=== PATIENT | male | born 1970 | race Caucasian/White ===

== ENCOUNTER 2022-11-16 20:31 | Inpatient (IN) | payer OTHER, SELFPAY ==
[2022-11-16 20:45] VITALS: BP 143/94; PULSE 68; RESP 18; TEMP 36.5; O2SAT 97
--- NOTE | 2022-11-17 01:28 | PC.ADMIT ---
Ghulam Zhao is a 52 year old male admitted to M3 for from [facility] for suicidal ideation following an intentional overdose on heroin. He signed a CV upon arrival to the unit. Ghulam states he is feeling overwhelmed r/t ongoing substance abuse, homelessness and lack of a good support system. He states that he is a client of the [facility] suboxone clinic but has not kept his appointments for the past three weeks. He endorses ongoing overwhelming suicidal ideation and is ambivalent regarding surviving his attempted overdose. He states he has lost approximately 30lbs recently r/t lack of funds, lack of housing, safety concerns, depression, and substance abuse. His appearance is unkempt however, he is homeless and has no access to a shower or laundry facilities. He has poor eye contact and was slightly irritable with the admission stating that he just wanted to go to bed. He did not compete the safety tool prior to going to bed. He is alert and oriented X's 3.
[2022-11-17] MEDS: cloNIDine HCL 0.1 MG TABLET PO ×2 (03:32→21:10)
[2022-11-17] MEDS: hydrOXYzine HCL 25 MG TABLET PO (03:32)
[2022-11-17 03:40] VITALS: BP 135/93; PULSE 61; RESP 18; TEMP 36.8; O2SAT 96
--- NOTE | 2022-11-17 03:55 | PC.NURSE ---
Ghulam c/o mild withdrawal s/s given clonidine and vistaril with pending effects
[2022-11-17 07:07] LABS: MANUAL DIFF FLAG NO
[2022-11-17 07:15] LABS: Basophils Percent Auto 0.5 % (0-2); Hematocrit 37.5 % (42.0-52.0); Hemoglobin 12.8 g/dl (14.0-18.0); Imm Gran Abs Auto 0.01 X10*3/uL (0.00-0.03); Imm Gran Pct Auto 0.2 % (0.0-0.4); Lymphocytes Absolute Auto 1.3 X10*3/uL (1.2-4.9); Lymphocytes Percent Auto 31.6 % (20-40); Mean Corpuscular HGB Conc 34.1 g/dl (31.0-36.0); Mean Corpuscular Hemoglobin 26.1 pg (27.0-33.0); Mean Corpuscular Volume 76.5 fL (80.0-98.0); Mean Platelet Volume 11.5 fL (9.4-12.4); Monocytes Absolute Auto 0.2 X10*3/uL (0.1-1.2); Monocytes Percent Auto 4.8 % (2-11); Neutrophils Absolute Auto 2.6 x10*3/uL (2.0-8.3); Neutrophils Percent Auto 61.9 % (45-73); Red Cell Distribution Width 16.6 % (11.0-16.0); White Blood Count 4.2 X10*3/uL (4.8-10.8)
[2022-11-17 07:26] LABS: Alanine Aminotransferase 20 U/L (0-40); Alkaline Phosphatase 88 U/L (39-117); Anion Gap 13 (12-20); Aspartate Amino Transferase 13 U/L (5-37); Bilirubin Total 0.9 mg/dL (0.0-1.0); Blood Urea Nitrogen 14 mg/dL (9-16); Calcium 8.3 mg/dL (8.4-10.2); Carbon Dioxide 23 mmol/L (22-29); Chloride 106 mmol/L (96-108); Cholesterol 113 mg/dL; Estimated Glomerular Filt Rate > 60; Glucose Fasting 116 mg/dL (60-99); HDL Cholesterol 38 mg/dL; LDL Cholesterol Calculated 62 mg/dl; Potassium 3.5 mmol/L (3.3-5.1); Sodium 138 mmol/L (135-145); Triglycerides 67 mg/dL
[2022-11-17 07:35] LABS: Platelet Count 76 X10*3/uL (160-400)
[2022-11-17 11:00] VITALS: BP 137/93; PULSE 67; RESP 16; TEMP 36.6; O2SAT 95
--- NOTE | 2022-11-17 11:07 | HO.PSYADMNOT ---
HPI Date of Service: 11/17/22 Chief Complaint: Unspecified Depressive D/o Sources of Information: patient interviewed, chart reviewed and crisis/core team assessment reviewed HPI Subjective Notes: Barber Warning (given and shows understanding) and Conditional Voluntary Narrative: Mr. Simmons is a 52 year-old male with hx of MDD, opioid use disorder who was found unresponsive on the streets- pt was given narcan with good result and transported to [facility]. In the ED his utox was negative for opioids, pt reports using fentanyl which was not tested for. He reports OD was a suicide attempt, not accidental. On the unit, pt reports he has been feeling depressed for about 3 weeks. Pt reports feeling lonely. He reports having multiple stressors including lack of housing and limited social supports. He reports he has been using opioids for more than 10 years. He states he has been for some years on suboxone. He states he has been using about 5 bags of heroin/fentanyl daily. He states day of OD it was on fentanyl and was with intent to end his life. He denies suicidal ideation at this point and states he is interested in resuming suboxone as well as being referred to residential substance use treatment. He denies VH/AH. Past Psychiatric History: Inpatient: 2 in the past unclear details OP: denies current providers Past trials: zoloft, seroquel, trazodone Hx of suicide attempt: 2 years ago OD on heroin. Medical Evaluation Reviewed: Yes [facility] Medical History History of hepatitis C Major depressive disorder Opioid dependence Polysubstance abuse Family History: unknown Social History: Pt currently homeless. He reports not working at the time. Substance History: Opioid use for more than 10 years, pt reports being on suboxone for some years, reports it is helpful to decrease opioid use. He reports he has been on methadone but prefers suboxone. He reports using 5 bags daily. Pt denies cocaine use/alcohol use. Trauma History: not discussed Diagnostics Vital Signs (24Hr): Vital Signs - 24 hr 11/16/22 20:45 11/17/22 03:40 Temperature 97.7 F 98.2 F Pulse Rate 68 61 Respiratory Rate 18 18 Blood Pressure 143/94 H 135/93 H Pulse Oximetry 97 96 Oxygen Delivery Method Room Air Room Air Labs 11/17/22 06:50 11/17/22 06:50 Labs: Laboratory Results - last 48 hr 11/17/22 11/17/22 06:50 06:50 WBC 4.2 L RBC 4.90 Hgb 12.8 L Hct 37.5 L MCV 76.5 L MCH 26.1 L MCHC 34.1 RDW 16.6 H Plt Count 76 L MPV 11.5 Immature Gran % (Auto) 0.2 Neut % (Auto) 61.9 Lymph % (Auto) 31.6 [place] % (Auto) 4.8 Eos % (Auto) 1.0 Baso % (Auto) 0.5 Lymph # (Auto) 1.3 [place] # (Auto) 0.2 Eos # (Auto) 0.0 Baso # (Auto) 0.0 Abs Immat Gran (auto) 0.01 Absolute Neuts (auto) 2.6 Absolute Nucleated RBC 0.000 Nucleated RBC % (auto) 0.0 Sodium 138 Potassium 3.5 Chloride 106 Carbon Dioxide 23 Anion Gap 13 BUN 14 Creatinine 0.82 Estim Creat Clear Calc TNP Estimated GFR > 60 Fasting Glucose 116 H Calcium 8.3 L Total Bilirubin 0.9 AST 13 ALT 20 Alkaline Phosphatase 88 Total Protein 6.0 L Albumin 3.0 L Triglycerides 67 Cholesterol 113 LDL Cholesterol, Calc 62 HDL Cholesterol 38 Meds/Allergies Allergies Allergies Allergy/AdvReac Type Severity Reaction Status Date / Time No Known Allergies Allergy Verified 11/16/22 20:45 Mental Status Exam Mental Status Exam Narrative: Appearance: wearing hospital gown, fair hygiene, in bed. Behavior: cooperative Speech: clear, normal rate/rhythm/volume, spontaneous Psychomotor: no agitation or retardation noted TP: linear TC: no signs of psychosis, feeling hopeless, wants tx. Mood: not well withdrawal symptoms Affect: congruent, physical discomfort s/s to opioid withdrawal symptoms. Si: denies HI: denies VH/AH: denies Delusions: none Insight/judgment: fair x 2. Memory/cog: alert, oriented x 3. grossly intact to conversational testing. Assessment & Plan Assessment & Plan (1) Major depressive disorder: Status: Acute Code(s): F32.9 - Major depressive disorder, single episode, unspecified (2) Opioid use disorder, severe, on maintenance therapy: Status: Acute Code(s): F11.20 - Opioid dependence, uncomplicated Plan Mr. Simmons is a 52 year-old male with hx of MDD, opioid use disorder who was found unresponsive on the streets- he was narcaned with good effect. Pt reported this was a suicide attempt on fentanyl. Pt reports increase depression in past several weeks. He endorses feeling hopeless, helpless in setting of multiple stressors. Pt reports he has been on sertraline in the past which he would like to restart. He wants to continue suboxone. Last dose per MAss Pat was 16mg/4mg SL daily. We discussed risks, benefits and alternative treatment options. PLAN 1. Admit to M3, CV, 15 minutes checks for safety 2. Comfort meds for opioid withdrawal- clonidine, flexeril, loperamide. Will start suboxone 8mg/2mg SL BID today. Start sertraline 50mg po daily tomorrow. 3. Aftercare planning. Patient educated on: diagnosis, medication risk/benefits and substance abuse Reason for continued inpatient stay Substantial Risk for: harm to self Statement Statement: I have reviewed the history and physical and performed a pertinent examination on my patient. No changes have occurred unless specified. If the History and Physical was not performed prior to admission, the Hospitalist's service will be consulted for completing the admission physical. Time Spent With Patient Time: Total time managing care of this patient today ____ minutes.
[2022-11-17] MEDS: Buprenorphine/Naloxone 8/2 mg FILM 1 FILM SUBLINGUAL ×2 (11:12→21:10)
--- NOTE | 2022-11-17 11:38 | P.CONHOSP_ITS ---
History of Present Illness Data of Consult Service Date: 11/17/22 Requesting physician: Nicole Galeana Primary Care Provider: Unknown Physician HPI Reason for consult: medical H&P 52-year-old male with history of polysubstance abuse including heroin/fentanyl and cocaine, history of hepatitis C treated at [facility] per patient, and major depressive disorder admitted to Psychiatry with consult placed to hospitalist service for medical H and P. He reports active withdrawal symptoms including diarrhea, agitation, back pain, sweats. He has been resumed on Suboxone. He denies any other substance use including alcohol and denies any cigarette smoking. While at [facility] ED, found to have mild microcytic anemia with H/H 11.4/33.8, MCV 79.4, mild hypokalemia with K 3.4. Hypertensive 160/89 actively withdrawing. Review of Systems Review of Systems: General: +sweats. No fevers, malaise, unintentional weight loss HEENT: No blurred vision, diplopia. No sore throat, nasal congestion, rhinor jesse, sinus pain, ear pain Cardiovascular: No chest pain, palpitations, or leg edema Respiratory: No shortness of breath, wheezing, cough GI: +diarrhea. No abdominal pain, nausea, vomiting, constipation, melena, hematochezia : No dysuria, hematuria, increased urinary frequency, decreased urinary output MSK: No myalgia. +back pain Neuro: No headaches, weakness, paresthesias Skin: No rashes or lesions PMFSH Medical History History of hepatitis C Major depressive disorder Opioid dependence Polysubstance abuse Social History Household Members: Other Household Members Other:: homeless Housing: Homeless Do you presently have visiting nurse or other home services: No Patient Tobacco Use Status: Never used Tobacco Smoked in Last 30 Days: No Patient Interested in Nicotine Replacement: No Patient Given Instructions on How to Stop Smoking: No Second Hand Smoke Exposure: No Use of substances other than those prescribed or required for medical reasons: Yes Substance Use Type: Crack/Cocaine, Heroin and IV Drugs Substance Use Frequency: Daily Last Used Substance: Days (ago) Last Used Substance Other:: yesterday heroin injected Currently Displaying Signs/Symptoms of Drug Intoxication Withdrawal: Yes (opiate withdrawal - on suboxone) Any prior treatment program specific to substance use: Yes Have you been hit, kicked, punched, or otherwise hurt by someone within the past year? If so, by whom?: No Do you feel safe in your current relationship?: No Current Relationship Is there a partner from a previous relationship who is making you feel unsafe now?: No Advance Directives: No Advance Directives Information Provided: No Do you have thoughts of harming others: None Do you have a plan to hurt others: No Plan Recently lost weight without trying: Yes How much weight loss: 24-33 pounds Eating poorly because of decreased appetite: Yes Nutrition screen score: 6 Poor oral hygiene: No Meds Allergies Allergy/AdvReac Type Severity Reaction Status Date / Time No Known Allergies Allergy Verified 11/16/22 20:45 Active Medications: Current Medications Acetaminophen (Acetaminophen 325 Mg Tablet) 650 mg PO Q6H PRN PRN Reason: Headache/Pain Mild Scale (1-3) Al Hydroxide/Mg Hydroxide (Magnesium Hydrox/Alum Hydrox 30 Ml Oral.Susp) 30 ml PO Q6H PRN PRN Reason: Heartburn/Nausea Buprenorphine/Naloxone (Buprenorphine/Naloxone 8/2 Mg Film) 1 film SUBLINGUAL DAILY EVER Last Admin: 11/17/22 11:12 Dose: 1 film Clonidine HCl (Clonidine Hcl 0.1 Mg Tablet) 0.1 mg PO BID PRN; Protocol PRN Reason: Opiate Withdrawal Last Admin: 11/17/22 03:32 Dose: 0.1 mg Hydroxyzine HCl (Hydroxyzine Hcl 25 Mg Tablet) 25 mg PO Q6H PRN PRN Reason: Anxiety Last Admin: 11/17/22 03:32 Dose: 25 mg Magnesium Hydroxide (Milk Of Magnesia 30 Ml Oral.Susp) 30 ml PO DAILY PRN PRN Reason: Constipation Ondansetron HCl (Ondansetron Odt 4 Mg Tab.Rapdis) 4 mg TRANSLINGU Q8H PRN PRN Reason: Nausea Trazodone HCl (Trazodone Hcl 50 Mg Tablet) 50 mg PO BEDTIME MRX1 PRN PRN Reason: Insomnia Physical Exam Vital Signs and Narrative: Vital Signs: Last Vital Signs Temp 98.2 F 11/17/22 03:40 Pulse 61 11/17/22 03:40 Resp 18 11/17/22 03:40 BP 135/93 H 11/17/22 03:40 Pulse Ox 96 11/17/22 03:40 O2 Del Method Room Air 11/17/22 03:40 Constitutional - Awake and Alert, mild aggitation Eyes - PERRLA, EOMI Cardiovascular - S1S2, RRR, No edema Respiratory - Normal lung expansion, Normal respiratory effort, No respiratory distress, CTA bilaterally Gastrointestinal - NT / ND; +BS; No rebound or guarding - No CVA tenderness Extremities - no calf tenderness bilaterally, no swelling Musculoskeletal - Bilateral paraspinal low back pain, no midline tenderness to palpation Skin - Warm/Dry Neurological - Alert & oriented x3, CN II-XII in tact, 5/5 strength BUE and BLE Results Labs 11/17/22 06:50 11/17/22 06:50 Labs: Laboratory Results - last 24 hr 11/17/22 11/17/22 06:50 06:50 MCV 76.5 L MCH 26.1 L MCHC 34.1 RDW 16.6 H Plt Count 76 L MPV 11.5 Immature Gran % (Auto) 0.2 Neut % (Auto) 61.9 Lymph % (Auto) 31.6 [place] % (Auto) 4.8 Eos % (Auto) 1.0 Baso % (Auto) 0.5 Lymph # (Auto) 1.3 [place] # (Auto) 0.2 Eos # (Auto) 0.0 Baso # (Auto) 0.0 Abs Immat Gran (auto) 0.01 Absolute Neuts (auto) 2.6 Absolute Nucleated RBC 0.000 Nucleated RBC % (auto) 0.0 Anion Gap 13 Estim Creat Clear Calc TNP Estimated GFR > 60 Fasting Glucose 116 H Calcium 8.3 L Total Bilirubin 0.9 AST 13 ALT 20 Alkaline Phosphatase 88 Total Protein 6.0 L Albumin 3.0 L Triglycerides 67 Cholesterol 113 LDL Cholesterol, Calc 62 HDL Cholesterol 38 Assessment and Plan (1) Routine medical exam: Status: Acute Plan 52-year-old male with history of polysubstance abuse including heroin/fentanyl and cocaine, history of hepatitis C treated at [facility] per patient, and major depressive disorder admitted to Psychiatry with consult placed to hospitalist service for medical H and P. #MDD -plan per psychiatry #Polysubstance abuse with opiate withdrawal -Last use heroin/fentanyl 2 days ago -COWS scale score 7 -Continue suboxone -Plan per psychiatry #Elevated blood pressure readings -?related to withdrawal -Monitor BP. If BP remains elevated following withdrawal >140/90, add amlodipine 5mg daily #Iron deficiency anemia -H/H 12.8/37.5%, MCV 76.5- above transfusion threshold -Denies melena, hematochezia -Ferrous sulfate daily with vitamin C for absorption -Recommend outpt follow up with PCP/GI for further evaluation of iron deficiency anemia in male patient. Should have outpt colonoscopy as well if not yet co mpleted for colon cancer screening #History hepatitis C -Pt reports treated at [facility], however upon review of chart at [facility], I do not find record of this -Hep C viral load ordered- if positive, outpt follow up with gastroenterology #Chronic low back pain -lidocaine patch added. Continue suboxone, tylenol prn Thank you for allowing me to participate in this consult. Signing off at this time. Please do not hesitate to call for further questions. Time Spent With Patient Time: Total time managing care of this patient today ____ minutes.
[2022-11-17 12:28] LABS: Iron 26 mcg/dL (45-160); Percent Iron Saturation 8 % (15-50); Total Iron Binding Capacity 306 mcg/dL (228-428); Unsaturated Iron Binding 280 ug/dL
[2022-11-17 12:34] LABS: Ferritin 32 ng/mL (20-250)
[2022-11-17] MEDS: Lidocaine 4 % Patch ADH..PATCH 1 PATCH TRANSDERMA (13:00)
[2022-11-17 21:00] VITALS: BP 141/93; PULSE 65; RESP 18; TEMP 36.8; O2SAT 98
[2022-11-17] MEDS: Cyclobenzaprine HCl 5 MG TABLET PO (21:09)
[2022-11-17] MEDS: traZODone HCL 100 MG TABLET PO (21:10)
[2022-11-17] MEDS: QUEtiapine Fumarate 50 MG TABLET PO (21:10)
[2022-11-17] MEDS: Loperamide HCl 2 MG CAPSULE PO (21:10)
[2022-11-18 08:00] VITALS: BP 114/84; PULSE 63; TEMP 36.6; O2SAT 96
[2022-11-18] MEDS: Ferrous Sulfate 324 MG TABLET.DR PO (08:54)
[2022-11-18] MEDS: Buprenorphine/Naloxone 8/2 mg FILM 2 FILM SUBLINGUAL (08:54)
[2022-11-18] MEDS: Ascorbic Acid 250 MG TABLET PO (08:55)
[2022-11-18] MEDS: Sertraline HCL 50 MG TABLET PO (08:55)
[2022-11-18] MEDS: Cyclobenzaprine HCl 5 MG TABLET PO ×3 (08:55→20:49)
[2022-11-18] MEDS: Lidocaine 4 % Patch ADH..PATCH 1 PATCH TRANSDERMA (08:57)
--- NOTE | 2022-11-18 13:27 | P.PNPSI_ITS ---
Subjective Subjective Date of Service: 11/18/22 Reason For Visit: Unspecified Depressive D/o Interim History: seen in his room, resting. c/o diarrhea, sweats, back pain. states he did not feel any withdrawal after getting his suboxone dose this morning. denies SI/SIBI/HI/AVH. wants rehab. per staff, not engaging in Tx on the unit. has had suboxone test doses which did not precipitate withdrawal. however, still c/o opioid withdrawal Sx. zoloft started for today. Mental Status Exam Mental Status Exam Narrative: Appearance: wearing hospital gown, fair hygiene, in bed. Behavior: cooperative Speech: clear, normal rate/rhythm/volume, spontaneous Psychomotor: no agitation or retardation noted TP: linear TC: no signs of psychosis Affect: blunted, non-labile Si: denies HI: denies VH/AH: denies Delusions: none Insight/judgment: fair x 2. Memory/cog: alert, oriented x 3. grossly intact to conversational testing. Diagnostics Vital Signs (24Hr): Vital Signs - 24 hr 11/17/22 21:00 11/18/22 08:00 Temperature 98.3 F 97.9 F Pulse Rate 65 63 Respiratory Rate 18 Blood Pressure 141/93 H 114/84 Pulse Oximetry 98 96 Oxygen Delivery Method Room Air Room Air Labs 11/17/22 06:50 11/17/22 06:50 Labs: Laboratory Results - last 48 hr 11/17/22 11/17/22 06:50 06:50 WBC 4.2 L RBC 4.90 Hgb 12.8 L Hct 37.5 L MCV 76.5 L MCH 26.1 L MCHC 34.1 RDW 16.6 H Plt Count 76 L MPV 11.5 Immature Gran % (Auto) 0.2 Neut % (Auto) 61.9 Lymph % (Auto) 31.6 [place] % (Auto) 4.8 Eos % (Auto) 1.0 Baso % (Auto) 0.5 Lymph # (Auto) 1.3 [place] # (Auto) 0.2 Eos # (Auto) 0.0 Baso # (Auto) 0.0 Abs Immat Gran (auto) 0.01 Absolute Neuts (auto) 2.6 Absolute Nucleated RBC 0.000 Nucleated RBC % (auto) 0.0 Sodium 138 Potassium 3.5 Chloride 106 Carbon Dioxide 23 Anion Gap 13 BUN 14 Creatinine 0.82 Estim Creat Clear Calc TNP Estimated GFR > 60 Fasting Glucose 116 H Calcium 8.3 L Iron 26 L TIBC 306 % Saturation 8 L Unsat Iron Binding 280 Ferritin 32 Total Bilirubin 0.9 AST 13 ALT 20 Alkaline Phosphatase 88 Total Protein 6.0 L Albumin 3.0 L Triglycerides 67 Cholesterol 113 LDL Cholesterol, Calc 62 HDL Cholesterol 38 Medications Medications Current Medications Acetaminophen (Acetaminophen 325 Mg Tablet) 650 mg PO Q6H PRN PRN Reason: Headache/Pain Mild Scale (1-3) Al Hydroxide/Mg Hydroxide (Magnesium Hydrox/Alum Hydrox 30 Ml Oral.Susp) 30 ml PO Q6H PRN PRN Reason: Heartburn/Nausea Ascorbic Acid (Ascorbic Acid 250 Mg Tablet) 250 mg PO DAILY [facility] Last Admin: 11/18/22 08:55 Dose: 250 mg Buprenorphine/Naloxone (Buprenorphine/Naloxone 8/2 Mg Film) 2 film SUBLINGUAL DAILY [facility] Clonidine HCl (Clonidine Hcl 0.1 Mg Tablet) 0.1 mg PO BID PRN; Protocol PRN Reason: Opiate Withdrawal Last Admin: 11/17/22 21:10 Dose: 0.1 mg Cyclobenzaprine HCl (Cyclobenzaprine Hcl 5 Mg Tablet) 5 mg PO TID [facility] Last Admin: 11/18/22 08:55 Dose: 5 mg Ferrous Sulfate (Ferrous Sulfate 324 Mg Tablet.Dr) 324 mg PO DAILY [facility] Last Admin: 11/18/22 08:54 Dose: 324 mg Hydroxyzine HCl (Hydroxyzine Hcl 25 Mg Tablet) 25 mg PO Q6H PRN PRN Reason: Anxiety Last Admin: 11/17/22 03:32 Dose: 25 mg Lidocaine (Lidocaine 4 % Patch Adh..Patch) 1 patch TRANSDERMA DAILY [facility]; Protocol Last Admin: 11/18/22 08:57 Dose: 1 patch Loperamide HCl (Loperamide Hcl 2 Mg Capsule) 2 mg PO Q4H PRN PRN Reason: Loose Stool Last Admin: 11/17/22 21:10 Dose: 2 mg Magnesium Hydroxide (Milk Of Magnesia 30 Ml Oral.Susp) 30 ml PO DAILY PRN PRN Reason: Constipation Ondansetron HCl (Ondansetron Odt 4 Mg Tab.Rapdis) 4 mg TRANSLINGU Q8H PRN PRN Reason: Nausea Quetiapine Fumarate (Quetiapine Fumarate 50 Mg Tablet) 50 mg PO Q6H PRN PRN Reason: anxiety/agitation Last Admin: 11/17/22 21:10 Dose: 50 mg Sertraline HCl (Sertraline Hcl 50 Mg Tablet) 50 mg PO DAILY [facility] Last Admin: 11/18/22 08:55 Dose: 50 mg Trazodone HCl (Trazodone Hcl 50 Mg Tablet) 50 mg PO BEDTIME PRN PRN Reason: Insomnia Trazodone HCl (Trazodone Hcl 100 Mg Tablet) 100 mg PO BEDTIME [facility] Last Admin: 11/17/22 21:10 Dose: 100 mg Allergies Allergies Allergy/AdvReac Type Severity Reaction Status Date / Time No Known Allergies Allergy Verified 11/16/22 20:45 Assessment & Plan Assessment & Plan (1) Routine medical exam: Status: Acute Code(s): Z00.00 - Encounter for general adult medical examination without abnormal findings Assessment and Plan: 52-year-old male with history of polysubstance abuse including heroin/fentanyl and cocaine, history of hepatitis C treated at [facility] per patient, and major depressive disorder admitted to Psychiatry with consult placed to hospitalist service for medical H and P. #MDD -plan per psychiatry #Polysubstance abuse with opiate withdrawal -Last use heroin/fentanyl 2 days ago -COWS scale score 7 -Continue suboxone -Plan per psychiatry #Elevated blood pressure readings -?related to withdrawal -Monitor BP. If BP remains elevated following withdrawal >140/90, add amlodipine 5mg daily #Iron deficiency anemia -H/H 12.8/37.5%, MCV 76.5- above transfusion threshold -Denies melena, hematochezia -Ferrous sulfate daily with vitamin C for absorption -Recommend outpt follow up with PCP/GI for further evaluation of iron deficiency anemia in male patient. Should have outpt colonoscopy as well if not yet com pleted for colon cancer screening #History hepatitis C -Pt reports treated at [facility], however upon review of chart at [facility], I do not find record of this -Hep C viral load ordered- if positive, outpt follow up with gastroenterology #Chronic low back pain -lidocaine patch added. Continue suboxone, tylenol prn (2) Opioid use disorder, severe, on maintenance therapy: Status: Acute Code(s): F11.20 - Opioid dependence, uncomplicated (3) Major depressive disorder: Status: Acute Code(s): F32.9 - Major depressive disorder, single episode, unspecified Plan Mr. Simmons is a 52 year-old male with hx of MDD, opioid use disorder who was found unresponsive on the streets- he was narcaned with good effect. Pt reported this was a suicide attempt on fentanyl. Pt reports increase depression in past several weeks. He endorses feeling hopeless, helpless in setting of multiple stressors. Pt reports he has been on sertraline in the past which he would like to restart. He wants to continue suboxone. Last dose per MAss Pat was 16mg/4mg SL daily. We discussed risks, benefits and alternative treatment options. 11/17: Admit to M3, CV, 15 minutes checks for safety. Comfort meds for opioid withdrawal- clonidine, flexeril, loperamide. Will start suboxone 8mg/2mg SL BID today. Start sertraline 50mg po daily tomorrow. 11/18: continue current mgmt. Reason for contiued inpatient stay Substantial Risk for: inability to function and rapid decompensation Time Spent With Patient Time: Total time managing care of this patient today __25__ minutes.
[2022-11-18] MEDS: cloNIDine HCL 0.1 MG TABLET PO (20:49)
[2022-11-18] MEDS: QUEtiapine Fumarate 50 MG TABLET PO (20:50)
[2022-11-18 21:55] VITALS: BP 140/88; PULSE 65; RESP 16; TEMP 36.6; O2SAT 97
[2022-11-19] MEDS: Cyclobenzaprine HCl 5 MG TABLET PO ×3 (09:03→20:05)
[2022-11-19] MEDS: Buprenorphine/Naloxone 8/2 mg FILM 2 FILM SUBLINGUAL (09:03)
[2022-11-19] MEDS: Sertraline HCL 50 MG TABLET PO (09:03)
[2022-11-19] MEDS: Ferrous Sulfate 324 MG TABLET.DR PO (09:03)
[2022-11-19] MEDS: Ascorbic Acid 250 MG TABLET PO (09:03)
--- NOTE | 2022-11-19 14:25 | HO.PSYCHPN ---
Subjective Subjective Date of Service: 11/19/22 Reason For Visit: Unspecified Depressive D/o Interim History: calm, cooperative. more responsive than yesterday. says he is eating better and sleeping well. happy with medications as they are. interested in rehab referrals. withdrawal Sx improved. per staff c/o some withdrawal Sx yesterday. declined 1:1 mtg with staff elizabeth. slept overnight. Mental Status Exam Mental Status Exam Narrative: Appearance: wearing hospital gown, fair hygiene, in bed. Behavior: cooperative Speech: clear, normal rate/rhythm/volume, spontaneous Psychomotor: no agitation or retardation noted TP: linear TC: no signs of psychosis Affect: flexible, non-labile Si: none expressed HI: none expressed VH/AH: none expressed Insight/judgment: fair x 2. Memory/cog: alert, oriented x 3. grossly intact to conversational testing. Diagnostics Vital Signs (24Hr): Vital Signs - 24 hr 11/18/22 21:55 Temperature 97.9 F Pulse Rate 65 Respiratory Rate 16 Blood Pressure 140/88 H Pulse Oximetry 97 Oxygen Delivery Method Room Air Labs 11/17/22 06:50 11/17/22 06:50 Medications Medications Current Medications Acetaminophen (Acetaminophen 325 Mg Tablet) 650 mg PO Q6H PRN PRN Reason: Headache/Pain Mild Scale (1-3) Al Hydroxide/Mg Hydroxide (Magnesium Hydrox/Alum Hydrox 30 Ml Oral.Susp) 30 ml PO Q6H PRN PRN Reason: Heartburn/Nausea Ascorbic Acid (Ascorbic Acid 250 Mg Tablet) 250 mg PO DAILY [facility] Last Admin: 11/19/22 09:03 Dose: 250 mg Buprenorphine/Naloxone (Buprenorphine/Naloxone 8/2 Mg Film) 2 film SUBLINGUAL DAILY [facility] Last Admin: 11/19/22 09:03 Dose: 2 film Clonidine HCl (Clonidine Hcl 0.1 Mg Tablet) 0.1 mg PO BID PRN; Protocol PRN Reason: Opiate Withdrawal Last Admin: 11/18/22 20:49 Dose: 0.1 mg Cyclobenzaprine HCl (Cyclobenzaprine Hcl 5 Mg Tablet) 5 mg PO TID [facility] Last Admin: 11/19/22 09:03 Dose: 5 mg Ferrous Sulfate (Ferrous Sulfate 324 Mg Tablet.) 324 mg PO DAILY [facility] Last Admin: 11/19/22 09:03 Dose: 324 mg Hydroxyzine HCl (Hydroxyzine Hcl 25 Mg Tablet) 25 mg PO Q6H PRN PRN Reason: Anxiety Last Admin: 11/17/22 03:32 Dose: 25 mg Lidocaine (Lidocaine 4 % Patch Adh..Patch) 1 patch TRANSDERMA DAILY [facility]; Protocol Last Admin: 11/19/22 11:33 Dose: Not Given Loperamide HCl (Loperamide Hcl 2 Mg Capsule) 2 mg PO Q4H PRN PRN Reason: Loose Stool Last Admin: 11/17/22 21:10 Dose: 2 mg Magnesium Hydroxide (Milk Of Magnesia 30 Ml Oral.Susp) 30 ml PO DAILY PRN PRN Reason: Constipation Ondansetron HCl (Ondansetron Odt 4 Mg Tab.Rapdis) 4 mg TRANSLINGU Q8H PRN PRN Reason: Nausea Quetiapine Fumarate (Quetiapine Fumarate 50 Mg Tablet) 50 mg PO Q6H PRN PRN Reason: anxiety/agitation Last Admin: 11/18/22 20:50 Dose: 50 mg Sertraline HCl (Sertraline Hcl 50 Mg Tablet) 50 mg PO DAILY [facility] Last Admin: 11/19/22 09:03 Dose: 50 mg Trazodone HCl (Trazodone Hcl 50 Mg Tablet) 50 mg PO BEDTIME PRN PRN Reason: Insomnia Trazodone HCl (Trazodone Hcl 100 Mg Tablet) 100 mg PO BEDTIME [facility] Last Admin: 11/18/22 20:51 Dose: Not Given Allergies Allergies Allergy/AdvReac Type Severity Reaction Status Date / Time No Known Allergies Allergy Verified 11/16/22 20:45 Assessment & Plan Assessment & Plan (1) Routine medical exam: Status: Acute Code(s): Z00.00 - Encounter for general adult medical examination without abnormal findings Assessment and Plan: 52-year-old male with history of polysubstance abuse including heroin/fentanyl and cocaine, history of hepatitis C treated at [facility] per patient, and major depressive disorder admitted to Psychiatry with consult placed to hospitalist service for medical H and P. #MDD -plan per psychiatry #Polysubstance abuse with opiate withdrawal -Last use heroin/fentanyl 2 days ago -COWS scale score 7 -Continue suboxone -Plan per psychiatry #Elevated blood pressure readings -?related to withdrawal -Monitor BP. If BP remains elevated following withdrawal >140/90, add amlodipine 5mg daily #Iron deficiency anemia -H/H 12.8/37.5%, MCV 76.5- above transfusion threshold -Denies melena, hematochezia -Ferrous sulfate daily with vitamin C for absorption -Recommend outpt follow up with PCP/GI for further evaluation of iron deficiency anemia in male patient. Should have outpt colonoscopy as well if not yet completed for colon cancer screening #History hepatitis C -Pt reports treated at [facility], however upon review of chart at [facility], I do not find record of this -Hep C viral load ordered- if positive, outpt follow up with gastroenterology #Chronic low back pain -lidocaine patch added. Continue suboxone, tylenol prn (2) Opioid use disorder, severe, on maintenance therapy: Status: Acute Code(s): F11.20 - Opioid dependence, uncomplicated (3) Major depressive disorder: Status: Acute Code(s): F32.9 - Major depressive disorder, single episode, unspecified Plan Mr. Simmons is a 52 year-old male with hx of MDD, opioid use disorder who was found unresponsive on the streets- he was narcaned with good effect. Pt reported this was a suicide attempt on fentanyl. Pt reports increase depression in past several weeks. He endorses feeling hopeless, helpless in setting of multiple stressors. Pt reports he has been on sertraline in the past which he would like to restart. He wants to continue suboxone. Last dose per MAss Pat was 16mg/4mg SL daily. We discussed risks, benefits and alternative treatment options. 4/2: Admit to M3, CV, 15 minutes checks for safety. Comfort meds for opioid withdrawal- clonidine, flexeril, loperamide. Will start suboxone 8mg/2mg SL BID today. Start sertraline 50mg po daily tomorrow. 4: continue current mgmt. 4: continue current mgmt. more responsive, more flexible affect, feeling improved. referrals to rehabs underway. Reason for contiued inpatient stay Substantial Risk for: inability to function and rapid decompensation Time Spent With Patient Time: Total time managing care of this patient today ____ minutes.
[2022-11-19 19:50] VITALS: BP 117/70; PULSE 64; RESP 16; TEMP 36.6; O2SAT 97
[2022-11-19] MEDS: cloNIDine HCL 0.1 MG TABLET PO (20:05)
[2022-11-19] MEDS: QUEtiapine Fumarate 50 MG TABLET PO (20:05)
[2022-11-20] MEDS: Ferrous Sulfate 324 MG TABLET.DR PO (08:58)
[2022-11-20] MEDS: Cyclobenzaprine HCl 5 MG TABLET PO ×3 (08:58→20:35)
[2022-11-20] MEDS: Sertraline HCL 50 MG TABLET PO (08:59)
[2022-11-20] MEDS: Buprenorphine/Naloxone 8/2 mg FILM 2 FILM SUBLINGUAL (08:59)
[2022-11-20] MEDS: Ascorbic Acid 250 MG TABLET PO (08:59)
[2022-11-20 10:02] VITALS: BP 114/72; PULSE 62; RESP 18; TEMP 36.4; O2SAT 96
[2022-11-20] MEDS: Lidocaine 4 % Patch ADH..PATCH 1 PATCH TRANSDERMA (11:25)
--- NOTE | 2022-11-20 14:09 | P.DS_ITS ---
DS: Providers Provider Date of Service: 11/20/22 Date of admission: 11/16/22 20:31 Primary care physician: Unknown Physician Consults: 11/16/22 20:45 Consult to Hospitalist Routine Comment: Consulting Provider: Hospitalist Reason For Exam: direct admit from another facility DS: Diagnosis Discharge Diagnosis (1) Routine medical exam: Status: Acute (2) Opioid use disorder, severe, on maintenance therapy: Status: Acute (3) Major depressive disorder: Status: Acute DS: Medications Discharge Medications Home Medications: Previous Rx's Medication Instructions Recorded ascorbic acid (vitamin C) 250 mg 250 mg PO DAILY 30 days #30 tabs 11/20/22 tablet buprenorphine 8 mg-naloxone 2 mg 2 film sublingual DAILY 5 days #10 11/20/22 sublingual film ea clonidine HCl 0.1 mg tablet 0.1 mg PO BID PRN Opiate 11/20/22 Withdrawal 30 days #60 tabs ferrous sulfate 324 mg (65 mg 324 mg PO DAILY 30 days #30 tabs 11/20/22 iron) tablet,delayed release lidocaine 4 % topical patch 1 patch transdermal DAILY 30 days 11/20/22 (Lidocaine Pain Relief) #30 ea quetiapine 50 mg tablet 50 mg PO BID PRN anxiety/agitation 11/20/22 30 days #60 tabs sertraline 50 mg tablet 50 mg PO DAILY 30 days #30 tabs 11/20/22 trazodone 100 mg tablet 100 mg PO BEDTIME 30 days #30 tabs 11/20/22 Mental Status Exam Mental Status Exam Narrative: Appearance: wearing hospital gown, fair hygiene, OOB for interview. Behavior: cooperative Speech: clear, normal rate/rhythm/volume, spontaneous Psychomotor: no agitation or retardation noted TP: linear TC: no signs of psychosis Affect: flexible, non-labile SI: none HI: none VH/AH: none Insight/judgment: fair x 2. Memory/cog: alert, oriented x 3. grossly intact to conversational testing. Data Data Completed and Pending Completed studies during hospitalization [Text1]: 11/17/22 11/17/22 11/17/22 06:50 06:50 12:02 WBC 4.2 L RBC 4.90 Hgb 12.8 L Hct 37.5 L MCV 76.5 L MCH 26.1 L MCHC 34.1 RDW 16.6 H Plt Count 76 L MPV 11.5 Immature Gran % (Auto) 0.2 Neut % (Auto) 61.9 Lymph % (Auto) 31.6 [place] % (Auto) 4.8 Eos % (Auto) 1.0 Baso % (Auto) 0.5 Lymph # (Auto) 1.3 [place] # (Auto) 0.2 Eos # (Auto) 0.0 Baso # (Auto) 0.0 Abs Immat Gran (auto) 0.01 Absolute Neuts (auto) 2.6 Absolute Nucleated RBC 0.000 Nucleated RBC % (auto) 0.0 Sodium 138 Potassium 3.5 Chloride 106 Carbon Dioxide 23 Anion Gap 13 BUN 14 Creatinine 0.82 Estim Creat Clear Calc TNP Estimated GFR > 60 Fasting Glucose 116 H Calcium 8.3 L Iron 26 L TIBC 306 % Saturation 8 L Unsat Iron Binding 280 Ferritin 32 Total Bilirubin 0.9 AST 13 ALT 20 Alkaline Phosphatase 88 Total Protein 6.0 L Albumin 3.0 L Triglycerides 67 Cholesterol 113 LDL Cholesterol, Calc 62 HDL Cholesterol 38 Hep C Viral Load Pending Hep C Viral Load Log Pending DS: Summary Hospital Course Hospital Course: per 11/17 admission note: Mr. Simmons is a 52 year-old male with hx of MDD, opioid use disorder who was found unresponsive on the streets- pt was given narcan with good result and transported to [facility]. In the ED his utox was negative for opioids, pt reports using fentanyl which was not tested for. He reports OD was a suicide attempt, not accidental. On the unit, pt reports he has been feeling depressed for about 3 weeks. Pt reports feeling lonely. He reports having multiple stressors including lack of housing and limited social supports. He reports he has been using opioids for more than 10 years. He states he has been for some years on suboxone. He states he has been using about 5 bags of heroin/fentanyl daily. He states day of OD it was on fentanyl and was with intent to end his life. He denies suicidal ideation at this point and states he is interested in resuming suboxone as well as being referred to residential substance use treatment. He denies VH/AH. Past Psychiatric History: Inpatient: 2 in the past unclear details OP: denies current providers Past trials: zoloft, seroquel, trazodone Hx of suicide attempt: 2 years ago OD on? heroin. Medical Evaluation Reviewed: Yes [facility] Medical History? History of hepatitis C Major depressive disorder Opioid dependence Polysubstance abuse Family History: unknown Social History: Pt currently homeless. He reports not working at the time. Substance History: Opioid use for more than 10 years, pt reports being on suboxone for some years, reports it is helpful to decrease opioid use. He reports he has been on methadone but prefers suboxone. He reports using 5 bags daily.? Pt denies cocaine use/alcohol use. Trauma History: not discussed 11/18: seen in his room, resting.? c/o diarrhea, sweats, back pain.? states he did not feel any withdrawal after getting his suboxone dose this morning.? denies SI/SIBI/HI/AVH.? wants rehab.? per staff, not engaging in Tx on the unit.? has had suboxone test doses which did not precipitate withdrawal.? however, still c/o opioid withdrawal Sx.? zoloft started for today. 11/19: calm, cooperative.? more responsive than yesterday.? says he is eating better and sleeping well.? happy with medications as they are.? interested in rehab referrals.? withdrawal Sx improved.? per staff c/o some withdrawal Sx yesterday.? declined 1:1 mtg with staff elizabeth.? slept overnight. 11/20: continues to feel better physically. up and out of bed this morning. discuss discharge tomorrow to present at rehab program, a plan which pt endorses. meds reviewed, reconciled, prescribed. discharge tomorrow morning. Precis: Mr. Simmons is a 52 year-old male with hx of MDD, opioid use disorder who was found unresponsive on the streets- he was narcaned with good effect. Pt reported this was a suicide attempt on fentanyl. Pt reports increase depression in past several weeks. He endorses feeling hopeless, helpless in setting of multiple stressors. Pt reports he has been on sertraline in the past which he would like to restart. He wants to continue suboxone. Last dose per MAss Pat was 16mg/4mg SL daily. We discussed risks, benefits and alternative treatment options. 11/17:? Admit to M3, CV, 15 minutes checks for safety.? Comfort meds for opioid withdrawal- clonidine, flexeril, loperamide. Will start suboxone 8mg/2mg SL BID today. Start sertraline 50mg po daily tomorrow. 11/18:? continue current mgmt. 11/19:? continue current mgmt.? more responsive, more flexible affect, feeling improved.? referrals to rehabs underway. 11/20: rejected from one rehab. agrees to discharge tomorrow to a second rehab. continues to feel better physically, more OOB and active today. Time Spent with Patient Time attestation: Total time managing care of this patient today ____ minutes. Time spent: Greater than 30 minutes Discharge Plan Discharge Anticipated Discharge Date/Time: 11/21/22 10:30 Patient Disposition: Xfer Inpatient Rehab Fac Discharge Diagnosis: Major Depressive Disorder, Recurrent Opioid Use Disorder Referrals: [facility] [Other] - 11/26/22 1:45 pm Physician,Unknown J [Primary Care Provider] - 1 Week Discharge Medications: New clonidine HCl 0.1 mg Tablet 0.1 mg PO BID PRN (Reason: Opiate Withdrawal) 30 Days Qty: 60 0RF Protocol: Hold for SBP< HOLD for SBP < : 90 lidocaine [Lidocaine Pain Relief] 4 % Adhesive Patch,Medicated 1 patch transdermal DAILY 30 Days Qty: 30 0RF Protocol: Apply to: Apply to: low back Rx Instructions: apply to lower back trazodone 100 mg Tablet 100 mg PO BEDTIME 30 Days Qty: 30 0RF sertraline 50 mg Tablet 50 mg PO DAILY 30 Days Qty: 30 0RF quetiapine 50 mg Tablet 50 mg PO BID PRN (Reason: anxiety/agitation) 30 Days Qty: 60 0RF ferrous sulfate 324 mg (65 mg iron) Tablet,Delayed Release (Dr/Ec) 324 mg PO DAILY 30 Days Qty: 30 0RF buprenorphine-naloxone 8-2 mg Film 2 film sublingual DAILY 5 Days Qty: 10 0RF ascorbic acid (vitamin C) 250 mg Tablet 250 mg PO DAILY 30 Days Qty: 30 0RF Discharge Orders: Discharge Order (Routine); Ordered 11/21/22 Ordered By: Jeyson Peralta Diet: Advance to usual diet Activity on Discharge: As tolerated Stand Alone Forms: Patient Portal Discharge page Care Plan Goals: remain safe, sober, and stable in the outpatient treatment setting Health Concerns: none Plan of Treatment: take medications as prescribed, attend appointments as scheduled Assessment: not at imminent risk of harm to self or others
[2022-11-20 20:34] VITALS: BP 129/80; PULSE 75; RESP 18; O2SAT 97
[2022-11-21] MEDS: Sertraline HCL 50 MG TABLET PO (08:46)
[2022-11-21] MEDS: Ferrous Sulfate 324 MG TABLET.DR PO (08:46)
[2022-11-21] MEDS: Cyclobenzaprine HCl 5 MG TABLET PO (08:46)
[2022-11-21] MEDS: Ascorbic Acid 250 MG TABLET PO (08:46)
[2022-11-21] MEDS: Lidocaine 4 % Patch ADH..PATCH 1 PATCH TRANSDERMA (08:46)
[2022-11-21] MEDS: Buprenorphine/Naloxone 8/2 mg FILM 2 FILM SUBLINGUAL (08:46)
[2022-11-21 13:22] LABS: HCV Log PCR <1.18 NOT DETECTED Log IU/mL (NOT DETECTED); HepC Viral Load <15 NOT DETECTED IU/mL (NOT DETECTED)
== END 2022-11-21 10:25 | DRG 751 ==
PROVIDERS: Clinical Nurse Specialist Psychiatric/Mental Health; Physician Assistant; Admitting Provider Psychiatry & Neurology Psychiatry; Visit Provider Psychiatry & Neurology Psychiatry
DX: F33.9 Major depressive disorder, recurrent, unspecified (principal); D50.9 Iron deficiency anemia, unspecified; F11.23 Opioid dependence with withdrawal; G89.29 Other chronic pain; F19.90 Other psychoactive substance use, unspecified, uncomplicated; M54.59 Other low back pain; Z59.02 Unsheltered homelessness; Z86.19 Personal history of other infectious and parasitic diseases; Z79.899 Other long term (current) drug therapy
CPT/HCPCS: 36415; 80053; 80061; 82728; 83540; 85025; 87522